=== PATIENT | female | born 1955 | race Caucasian/White ===

== ENCOUNTER 2023-01-28 17:43 | Emergency (ER) | payer OTHER ==
[~2023-01-28] VITALS: Ht 157.5 cm; Wt 65.8 kg
[2023-01-28] MEDS ORDERED: COZAAR25 MG PO (18:04)
[2023-01-28] MEDS ORDERED: TOPROL XL25 M1 PO (18:04)
[2023-01-28] MEDS ORDERED: GLUMETZA500 MG PO (18:04)
[2023-01-28] MEDS ORDERED: CRESTOR5 MG PO (18:04)
[2023-01-28] MEDS ORDERED: GENVOYA TABLET1 EACH PO (18:05)
[2023-01-28] MEDS ORDERED: FARXIGA5 MG PO (18:09)
== END 2023-01-28 22:08 | disposition home or self-care (01) ==
LOC: ER 17:43
DX: R10.2 Pelvic and perineal pain (principal); D25.9 Leiomyoma of uterus, unspecified; N83.201 Unspecified ovarian cyst, right side; Z88.2 Allergy status to sulfonamides